=== PATIENT | male | born 1955 | race Two or more races ===

== ENCOUNTER 2024-09-16 17:08 | Inpatient (IN) | payer OTHER, MEDICAID ==
[~2024-09-16] VITALS: Ht 177.8 cm; Wt 98.0 kg
--- NOTE | 2024-09-16 17:46 | ED.PDOC ---
History of Present Illness HPI Comments 68 y/o M, with a Hx of DM, HLD, and HTN, presents with spouse for c/o shortness of breath, dyspnea, and non-productive cough for the past 3-4 days. Patient reports unprovoked onset of symptoms that has been persisting for the past few days and being sent from an urgent care facility for further workup after being seen and evaluated, earlier, today. Patient comments on symptoms exacerbating whenever lying down. Patient states on no recent stress, injuries, sick contact, travel, spoiled food intake, or substance use/exposure. Patient endorses no additional relevant or pertinent past medical, surgical, or family Hx. Patient denies having any chest pain nausea, vomiting, fever, chills, or other associated symptoms or modifiers at this time. Chief Complaint: Shortness of Breath Time Seen by MD: 17:25 Primary Care Provider: [place] Reviewed Notes: Nurses Notes, Medications, Allergies Allergies: Coded Allergies: NO KNOWN ALLERGIES (Unverified , 09/16/24) Information Source: Patient Mode of Arrival: Ambulatory Severity: Moderate Timing: Days Duration: Since onset Prehospital treatment: None Past Medical History PAST MEDICAL HISTORY: DM, High Lipids, HTN Surgical History: Appendectomy, Hernia Repair, Tonsillectomy Family History Family History: Unknown Social History Smoker: Non-Smoker Alcohol: Denies ETOH Use Drugs: Denies Drug Use Lives In: Home Constitutional: denies: chills, diaphoresis, fatigue, fever, malaise, sweats, weakness, others EENTM: denies: blurred vision, double vision, ear bleeding, ear discharge, ear drainage, ear pain, ear ringing, eye pain, eye redness, hearing loss, mouth pain, mouth swelling, nasal discharge, nose bleeding, nose congestion, nose pain, photophobia, tearing, throat pain, throat swelling, voice changes, others Respiratory: reports: cough, shortness of breath, others (dyspnea ); denies: hemoptysis, orthopnea, SOB at rest, SOB with excertion, stridor, wheezing Cardiovascular: denies: chest pain, dizzy spells, diaphoresis, Dyspnea on exertion, edema, irregular heart beat, left arm pain, lightheadedness, palpitations, PND, syncope, others Gastrointestinal: denies: abdomen distended, abdominal pain, blood streaked bowels, constipated, diarrhea, dysphagia, difficulty swallowing, hematemesis, melena, nausea, poor appetite, poor fluid intake, rectal bleeding, rectal pain, vomiting, others Genitourinary: denies: burning, dysuria, flank pain, frequency, hematuria, incontinence, penile discharge, penile sore, pain, testicle pain, testicle swelling, urgency, others Neurological: denies: dizziness, fainting, headache, left sided numbness, left sided weakness, numbness, paresthesia, pre-existing deficit, right sided numbness, right sided weakness, seizure, speech problems, tingling, tremors, weakness, others Musculoskeletal: denies: back pain, gout, joint pain, joint swelling, muscle pain, muscle stiffness, neck pain, others Integumetry: denies: bruises, change in color, change in hair/nails, dryness, laceration, lesions, lumps, rash, wounds, others Allergic/Immunocompromised: denies: Difficulty Healing, Frequent Infections, Hives, Itching, others Hematologic/Lymphatic: denies: anemia, blood clots, easy bleeding, easy bruising, swollen glands, others Endocrine: denies: excessive hunger, excessive sweating, excessive thirst, excessive urination, flushing, intolerance to cold, intolerance to heat, unexplained weight gain, unexplained weight loss, others Psychiatric: denies: anxiety, bipolar disorder, depression, hopeless, panic disorder, schizophrenia, sleepless, suicidal, others All Other Systems: Reviewed and Negative Physical Exam General Appearance: Moderate Distress HEENT: Normal ENT Inspection, Pharynx Normal, TMs Normal Neck: Full Range of Motion, Non-Tender, Normal, Normal Inspection Respiratory: Chest Non-Tender, Decreased Breath Sounds, No Accessory Muscle Use, Rales Cardiovascular: No Edema, No JVD, No Murmur, No Gallop, Normal Peripheral Pulses, Regular Rate/Rhythm Breast Exam: Deferred Gastrointestinal: No Organomegaly, Non Tender, No Pulsatile Mass, Normal Bowel Sounds, Soft Genitalia: Deferred Pelvic: Deferred Rectal: Deferred Extremities: No calf tenderness, Normal capillary refill, Pedal edema Musculoskeletal : Apperance: Normal Neurologic: Alert, patient companion II-XII nml as Tested, Motor Weakness, Normal Affect, Normal Mood, No Sensory Deficits Cerebellar Function: Normal Reflexes: Normal Skin: Dry, Normal Color, Warm Lymphatic: No Adenopathy Was a procedure done? Was a procedure done?: No EKG EKG : Pulse Rate (adult): 86 Walker: Normal Cardiac Rhythm: NSR Block: None Hypertrophy: None ST: Normal Differential Dx Considerations may include: PNA, bronchitis, Covid19, URI, viral syndrome, PE, MA X-Ray, Labs, Meds, VS Vital Signs Date Time Temp Pulse Resp B/P (MAP) Pulse Ox O2 Delivery O2 Flow Rate FiO2 09/16/24 17:46 86 09/16/24 17:29 86 09/16/24 17:25 98.0 98 18 146/54 (84) 90 Lab Test 09/16/24 17:30 Range/Units White Blood Count 9.1 4.4-10.8 10^3/uL Red Blood Count 4.63 4.5-5.90 10^6/uL Hemoglobin 13.4 L 13.5-17.5 g/dL Hematocrit 40.2 L 41.0-53.0 % Mean Corpuscular Volume 86.7 80.0-100.0 fL Mean Corpuscular Hemoglobin 28.9 28.0-32.0 pg Mean Corpuscular Hemoglobin Concent 33.4 32.0-36.0 g/dL Red Cell Distribution Width 16.9 H 11.8-14.3 % Platelet Count 231 140-450 10^3/uL Mean Platelet Volume 8.4 6.9-10.8 fL Neutrophils (%) (Auto) 70.4 37.0-80.0 % Lymphocytes (%) (Auto) 18.1 10.0-50.0 % Monocytes (%) (Auto) 7.5 0.0-12.0 % Eosinophils (%) (Auto) 2.5 0.0-7.0 % Basophils (%) (Auto) 1.5 0.0-2.0 % Neutrophils # (Auto) 6.4 1.6-8.6 10 ^3/uL Lymphocytes # (Auto) 1.6 0.4-5.4 10 ^3/uL Monocytes # (Auto) 0.7 0-1.3 10 ^3/uL Eosinophils # (Auto) 0.2 0-0.8 10 ^3/uL Basophils # (Auto) 0.1 0-0.2 10 ^3/uL Nucleated Red Blood Cells 0.0 % D-Dimer, Quantitative 0.40 0.0-0.49 mg/L FEU Sodium Level 141 136-145 mmol/L Potassium Level 3.9 3.5-5.1 mmol/L Chloride Level 110 H 98-107 mmol/L Carbon Dioxide Level 24 20-31 mmol/L Anion Gap 7 5-15 Blood Urea Nitrogen 18 9-23 mg/dL Creatinine 1.15 0.700-1.30 mg/dL Glomerular Filtration Rate Calc 68 >90 mL/min BUN/Creatinine Ratio 15.7 10.0-20.0 Serum Glucose 104 74-106 mg/dL Calcium Level 10.0 8.7-10.4 mg/dL B-Type Natriuretic Peptide 338.88 0-100 pg/mL PROCEDURE(s): CXR2 - CHEST TWO VIEWS ROUTINE IMPRESSION: 1. Hazy bibasilar opacities may reflect atelectasis or mild pneumonia. Time of 1ST Reevaluation: 17:55 Reevaluation 1ST: Unchanged Patient Education/Counseling: Diagnosis, Treatment, Prognosis Family Education/Counseling: Diagnosis, Treatment, Prognosis Departure 1 Departure Time of Disposition: 19:48 Impression: Primary Impression: Acute on chronic diastolic heart failure Disposition: ADMITTED INPATIENT Admit to: Tele Condition: Fair Critical Care Note Critical Care Time?: Yes (35 min-critical care time only) Stability Stability form required: Yes Unstable for transfer: Telemetry monitoring (Telemetry monitoring required), ED Physician Assesment (Clinical assesment) Heart Score Heart Score: Heart Score Response (Comments) Value History Moderate Suspicious 1 EKG Normal 0 Age >65 2 Risk Factors >3 or Hx ASHD 2 Troponin Normal limit 0 Total 5 I personally scribed for LANCE SALAMANCA MD ([email or web address]) on 09/16/24 at 17:46. Electronically submitted by Vijay Rojas ([email or web address]). I personally scribed for LANCE SALAMANCA MD ([email or web address]) on 09/16/24 at 18:33. Electronically submitted by Vijay Rojas ([email or web address]). LANCE SALAMANCA MD Sep 16, 2024 17:46
[2024-09-16 17:52] LABS: Basophils # (auto) 0.1 10 ^3/uL (0-0.2); Basophils % (auto) 1.5 % (0.0-2.0); Eosinophils # (auto) 0.2 10 ^3/uL (0-0.8); Eosinophils % (auto) 2.5 % (0.0-7.0); Hematocrit 40.2 % (41.0-53.0); Hemoglobin 13.4 g/dL (13.5-17.5); Lymphocytes # (auto) 1.6 10 ^3/uL (0.4-5.4); Lymphocytes % (auto) 18.1 % (10.0-50.0); Mean Corpuscular Hemoglobin 28.9 pg (28.0-32.0); Mean Corpuscular Hgb Conc. 33.4 g/dL (32.0-36.0); Mean Corpuscular Volume 86.7 fL (80.0-100.0); Monocytes # (auto) 0.7 10 ^3/uL (0-1.3); Monocytes % (auto) 7.5 % (0.0-12.0); Neutrophils # (auto) 6.4 10 ^3/uL (1.6-8.6); Neutrophils % (auto) 70.4 % (37.0-80.0); Platelet Count (auto) 231 10^3/uL (140-450); Red Blood Cells 4.63 10^6/uL (4.5-5.90); Red Cell Distribution Width 16.9 % (11.8-14.3); White Blood Cell 9.1 10^3/uL (4.4-10.8)
[2024-09-16 17:54] LABS: Chloride 110 mmol/L (98-107); Potassium 3.9 mmol/L (3.5-5.1); Sodium 141 mmol/L (136-145)
[2024-09-16 17:55] LABS: Anion Gap 7 (5-15); Carbon Dioxide 24 mmol/L (20-31)
--- NOTE | 2024-09-16 17:59 | DVH ---
CHEST RADIOGRAPH Indication:sob Technique: Frontal and lateral view of the chest was obtained Comparison: None FINDINGS: Lines and Tubes: None Lungs: Hazy bibasilar opacities may reflect atelectasis or mild pneumonia. Pleura: No effusion. No pneumothorax. Cardiomediastinal contours: Unremarkable Bones: Right shoulder arthroplasty is partially visualized. IMPRESSION: 1. Hazy bibasilar opacities may reflect atelectasis or mild pneumonia.
[2024-09-16 18:00] LABS: BUN/Creatinine Ratio 15.7 (10.0-20.0); Blood Urea Nitrogen 18 mg/dL (9-23); Glucose 104 mg/dL (74-106)
[2024-09-16 20:34] VITALS: PULSE 77; RESP 20; O2SAT 98
[2024-09-16] MEDS: FUROSEMIDE 40 MG/4 ML VIAL IV ONE (20:41)
[2024-09-16] MEDS ORDERED: MORPHINE SULFATE INJ 2 MG/ml SYRG IV PRN (21:15)
[2024-09-16] MEDS ORDERED: ONDANSETRON HCL 4 MG/2 ML VIAL IV PRN (21:15)
[2024-09-16] MEDS ORDERED: NITROGLYCERIN 0.4 MG SL TAB SL PRN (21:15)
[2024-09-16] MEDS ORDERED: HYDROcodone-ACET 5/325MG TAB PO PRN (21:15)
[2024-09-16] MEDS ORDERED: IPRATROPIUM BROM 0.5 MG/2.5ML INH SOL NEB PRN (22:30)
[2024-09-16] MEDS ORDERED: ALBUTEROL SULF 2.5 MG/0.5ML(0.5%) NEB SOLN NEB PRN (22:30)
--- NOTE | 2024-09-16 22:32 | DVHHPRES ---
History of Present Illness Resident Creating Document: GIOVANA YBARRA RESIDENT History of Present Illness This is a 68 years old male with past medical history of hypertension, hyperlipidemia, DVT, PE, type 2 diabetes mellitus, Hodgkin's lymphoma, CHF presented to the ED with a chief complaint of shortness of breath, and produ ctive cough for last 3 days prior to this admission. The patient state that 3 days ago he started having cough with whitish sputum and shortness of breath mainly on exertion. He first went to the urgent care for these symptoms and they sent the patient to the ER for further evaluation and management of shortness of breath. Patient denies chest pain, dizziness, diaphoresis, abdominal pain, nausea, vomiting, change in bowel and bladder habit, sick contact or any recent traveling. PCP: Dr. Finn Myers Past Medical History Hypertension, hyperlipidemia, DVT, PE, type 2 diabetes mellitus, CHF Past Surgical History Appendectomy, umbilical hernia repair surgery 2 times, hand surgery Family History None Smoke: No ALCOHOL: none Drugs: None Lives: with Family Review of Systems Constitutional: No: Fever, Chills, Sweats, Weakness, Malaise, Other Eyes: No: Pain, Vision change, Conjunctivae inflammation, Eyelid inflammation, Other, Redness Respiratory: Cough, Shortness of breath, SOB with excertion, Sputum Cardiovascular: No: Chest Pain, Palpitations, Orthopnea, Paroxysmal Noc. Dyspnea, Edema, Lt Headedness, Other Gastrointestinal: No: Nausea, Vomiting, Abdominal Pain, Diarrhea, Constipation, Melena, Hematochezia, Other Genitourinary: No Dysuria, No Frequency, No Incontinence, No Hematuria, No Retention, No Other Musculoskeletal: No: other, neck pain, shoulder pain, arm pain, back pain, hand pain, leg pain, foot pain Skin: No: Rash, Lesions, Jaundice, Bruising, Other Neurological: No: Weakness, Numbness, Incoordination, Change in speech, Confusion, Seizures, Other Allergies: Coded Allergies: NO KNOWN ALLERGIES (Unverified , 09/16/24) Medications Current Medications Medications Dose Ordered Sig/Ginger Route Start Time Stop Time Status Last Admin Dose Admin Sodium Chloride 10 ml Q8HR IV 09/16/24 22:00 Acetaminophen/ Hydrocodone Bitart 1 tab Q4HP PRN PO 09/16/24 21:15 Ondansetron HCl 4 mg Q4HP PRN IV 09/16/24 21:15 Nitroglycerin 0.4 mg Q5MINP PRN SL 09/16/24 21:15 Morphine Sulfate 2 mg Q30M PRN IV 09/16/24 21:15 Albuterol 2.5 mg Q4HPRN PRN NEB 09/16/24 22:30 Ipratropium [place] 0.5 mg Q4HPRN PRN NEB 09/16/24 22:30 Warfarin Sodium RX PROTOCOL PER PHARMACY PO 09/16/24 22:30 UNV Exam Vital Signs Vital Signs Date Time Temp Pulse Resp B/P (MAP) Pulse Ox O2 Delivery O2 Flow Rate FiO2 09/16/24 20:41 138/65 09/16/24 20:34 77 20 98 Room Air* 0 21 09/16/24 20:31 97.7 97.7 Exam Physical examination: General Appearance: Alert, Oriented X3, Cooperative, No acute distress HEENT: Atraumatic, PERRLA, EOMI, Mucous membrane moist/pink Respiratory: Clear to auscultation, Normal air movement Cardiovascular: Regular rate, Normal S1, Normal S2, No murmurs, no chest wall tenderness Abdominal: Normal bowel sounds, Soft, No tenderness, No hepatospenomegaly, No masses Extremities: No clubbing, No cyanosis, No edema, Normal pulses, No tenderness/swelling Skin: No rashes, No breakdown, No significant lesion Neuro: Normal gait, Normal speech, Strength at 5/5 X4 ext, Normal tone, Sensation intact, grossly intact cranial nerves Psych/Mental Status: Mental status NL, Mood NL Labs/Xrays Labs Test 09/16/24 17:30 Range/Units White Blood Count 9.1 4.4-10.8 10^3/uL Red Blood Count 4.63 4.5-5.90 10^6/uL Hemoglobin 13.4 L 13.5-17.5 g/dL Hematocrit 40.2 L 41.0-53.0 % Mean Corpuscular Volume 86.7 80.0-100.0 fL Mean Corpuscular Hemoglobin 28.9 28.0-32.0 pg Mean Corpuscular Hemoglobin Concent 33.4 32.0-36.0 g/dL Red Cell Distribution Width 16.9 H 11.8-14.3 % Platelet Count 231 140-450 10^3/uL Mean Platelet Volume 8.4 6.9-10.8 fL Neutrophils (%) (Auto) 70.4 37.0-80.0 % Lymphocytes (%) (Auto) 18.1 10.0-50.0 % Monocytes (%) (Auto) 7.5 0.0-12.0 % Eosinophils (%) (Auto) 2.5 0.0-7.0 % Basophils (%) (Auto) 1.5 0.0-2.0 % Neutrophils # (Auto) 6.4 1.6-8.6 10 ^3/uL Lymphocytes # (Auto) 1.6 0.4-5.4 10 ^3/uL Monocytes # (Auto) 0.7 0-1.3 10 ^3/uL Eosinophils # (Auto) 0.2 0-0.8 10 ^3/uL Basophils # (Auto) 0.1 0-0.2 10 ^3/uL Nucleated Red Blood Cells 0.0 % D-Dimer, Quantitative 0.40 0.0-0.49 mg/L FEU Sodium Level 141 136-145 mmol/L Potassium Level 3.9 3.5-5.1 mmol/L Chloride Level 110 H 98-107 mmol/L Carbon Dioxide Level 24 20-31 mmol/L Anion Gap 7 5-15 Blood Urea Nitrogen 18 9-23 mg/dL Creatinine 1.15 0.700-1.30 mg/dL Glomerular Filtration Rate Calc 68 >90 mL/min BUN/Creatinine Ratio 15.7 10.0-20.0 Serum Glucose 104 74-106 mg/dL Calcium Level 10.0 8.7-10.4 mg/dL B-Type Natriuretic Peptide 338.88 0-100 pg/mL Assessment/Plan Assessment/Plan Assessment and plan: # Shortness of breath, cough with sputum rule out Gram-positive versus Gram- negative pneumonia/ CHF - patient is on room air - chest x-ray revealed hazy bibasilar opacities may reflect atelectasis or mild pneumonia. - BNP is elevated - D- dimer is normal - Ordered echo # Type 2 diabetes mellitus, hemoglobin A1c 6.1 - Mild sliding scale of insulin # History of DVT and PE and on warfarin - Continue warfarin as per pharmacy and monitor the INR. Goal of care discussed with the patient for more than 17 minutes full code Plan of treatment discussed with Dr. Hahn Plan discussed with: Patient, Other My Orders Orders - GIOVANA YBARRA RESIDENT Procedure Category Date Status Time Admit ADMIT 09/16/24 Transmitted 21:07 Code Status CODE 09/16/24 Transmitted 21:07 Sodium Chloride Lock PHA 09/16/24 In Process (Saline Lock Ns) 22:00 Oxygen Per Hour RT 09/16/24 Transmitted 21:07 Hydrocodone-Acet PHA 09/16/24 In Process 5/325mg Tab ([place] 21:15 Ondansetron Hcl PHA 09/16/24 In Process (Zofran) 21:15 Fall Risk Precautions [facility] 09/16/[address] 21:07 Complete Blood Count LAB 09/17/24 Verified 04:00 Comprehensive LAB 09/17/24 Verified Metabolic Panel 04:00 Cardiac DIET 09/17/24 Transmitted Diet-2gna,Lofat,Lochol Breakfast Pt Request For Service PT 09/16/24 Logged 21:07 Nitroglycerin PHA 09/16/24 In Process Sublingual (Ntrostat 21:15 Morphine Sulfate PHA 09/16/24 In Process Injection 21:15 Oxygen By Nasal RT 09/16/24 Transmitted Cannula 21:07 Stat Ekg For Chest [facility] 09/16/24 In Process Pain 21:07 Notify Of Changes [facility] 09/16/24 In Process From Base 21:07 Assistant Office Manager For [employer] 09/16/24 In Process 24 Hours 21:07 Emergency Dysrhythmia [facility] 09/16/24 In Process Protocol 21:07 Rhythm Strips Once [facility] 09/16/24 In Process Every Shift 21:07 Urinalysis LAB 09/16/24 Uncollected 22:23 Hemoglobin A1c LAB 09/16/24 Logged 22:23 Vitamin B12 LAB 09/16/24 Logged 22:23 Thyroid Stimulating LAB 09/16/24 Logged Hormone 22:23 Vitamin D, 25-Hydroxy LAB 09/16/24 Logged 22:23 Albuterol Medneb PHA 09/16/24 In Process (Ventolin Medneb) 22:30 Ipratropium Medneb PHA 09/16/24 In Process (Atrovent Medneb) 22:30 Warfarin Per Rx PHA 09/16/24 Logged Protocol (Coumadin 22:30 Date of Service: Sep 16, 2024 Billing Provider: BRITTNEY HAHN MD Common Visit Codes: 39956-NBYRIJA INP/OBS CARE (HIGH) Secondary Visit Codes: 58918-EPHETQUA CARE PLAN 30 MINUTES GIOVANA YBARRA Sep 16, 2024 22:32 BRITTNEY HAHN MD Sep 17, 2024 18:25
[2024-09-16] MEDS: SODIUM CHLOR 0.9% PF (SALINE LOCK) 10ML VIAL/SYR IV SCH (22:42)
[2024-09-16 23:00] VITALS: BP 108/51; PULSE 75; RESP 16; TEMP 97.5; O2SAT 95
[2024-09-16] MEDS ORDERED: DEXTROSE (50%) 50ML SYRG IV PRN (23:45)
[2024-09-17] VITALS (11 sets, daily range): BP systolic 105–129; BP diastolic 52–70; PULSE 64–85; RESP 17–20; TEMP 97.2–98.1; O2SAT 91–97
[2024-09-17] MEDS ORDERED: MECL1TAB42 PO (02:32)
[2024-09-17] MEDS ORDERED: WARF-112 PO (02:32)
[2024-09-17] MEDS ORDERED: METF-370 PO (02:32)
[2024-09-17] MEDS ORDERED: BENZ100C97 PO (02:32)
[2024-09-17] MEDS ORDERED: WARF-113 PO (02:32)
[2024-09-17] MEDS ORDERED: AMLO1TAB22 PO (02:32)
[2024-09-17] MEDS ORDERED: ATOR-507 PO (02:32)
[2024-09-17 06:15] LABS: Basophils # (auto) 0.1 10 ^3/uL (0-0.2); Basophils % (auto) 1.2 % (0.0-2.0); Eosinophils # (auto) 0.2 10 ^3/uL (0-0.8); Eosinophils % (auto) 2.9 % (0.0-7.0); Hematocrit 36.8 % (41.0-53.0); Hemoglobin 12.4 g/dL (13.5-17.5); INR 2.27 (0.9-1.15); Lymphocytes # (auto) 1.1 10 ^3/uL (0.4-5.4); Lymphocytes % (auto) 13.7 % (10.0-50.0); Mean Corpuscular Hemoglobin 28.9 pg (28.0-32.0); Mean Corpuscular Hgb Conc. 33.7 g/dL (32.0-36.0); Mean Corpuscular Volume 85.7 fL (80.0-100.0); Monocytes # (auto) 0.8 10 ^3/uL (0-1.3); Neutrophils # (auto) 5.6 10 ^3/uL (1.6-8.6); Neutrophils % (auto) 72.2 % (37.0-80.0); Platelet Count (auto) 204 10^3/uL (140-450); Prothrombin Time 22.6 sec (9.3-11.8); Red Blood Cells 4.29 10^6/uL (4.5-5.90); Red Cell Distribution Width 16.3 % (11.8-14.3); White Blood Cell 7.7 10^3/uL (4.4-10.8)
[2024-09-17] MEDS: ACCU-CHEK COMFORT CURVE STRIP VI SCH (06:20)
[2024-09-17] MEDS: InsuLIN REG 1unit/0.01ml Soln (100units/ml) SC SCH (06:20)
[2024-09-17 06:28] LABS: Alanine Aminotransferase 13 U/L (7-40); Alkaline Phosphatase 88 U/L (46-116); Anion Gap 6 (5-15); BUN/Creatinine Ratio 16.2 (10.0-20.0); Blood Urea Nitrogen 18 mg/dL (9-23); Calcium 9.5 mg/dL (8.7-10.4); Carbon Dioxide 27 mmol/L (20-31); Chloride 108 mmol/L (98-107); Glucose 116 mg/dL (74-106); Potassium 3.6 mmol/L (3.5-5.1); Sodium 141 mmol/L (136-145)
[2024-09-17 06:29] LABS: Albumin 4.2 g/dL (3.2-4.8); Aspartate Aminotransferase 12 U/L (13-40); Bilirubin, Total 2.4 mg/dL (0.2-1.0); Total Protein 6.6 g/dL (5.7-8.2)
--- NOTE | 2024-09-17 08:01 | ECG ---
[facility] Test Date: 2024-09-16 Test Time: 17:29:45 Pat Name: ANTOLIN JULES Department: ER Room: 0216 Gender: M Patient Services Coordinator: SHA : 1955 Requested By: LANCE SALAMANCA Order Number: [id number] Reading MD: Measurements Intervals [place] Rate: 86 P: 41 GA: 181 QRS: 111 QRSD: 159 T: 7 QT: 461 QTc: 552 Interpretive Statements Sinus rhythm Nonspecific intraventricular conduction delay Consider anterior infarct Baseline wander in lead(s) V4 Please click the below link to view image of tracing.
[2024-09-17 09:05] LABS: COVID19 ANTIGEN SOFIA FIA NEGATIVE (NEGATIVE)
[2024-09-17 09:06] LABS: Rapid Influenza A Negative (Negative)
[2024-09-17 09:09] LABS: Free T3 3.63 pg/mL (2.3-4.2); Free T4 (Free Thyroxine) 1.19 ng/dL (0.89-1.76)
[2024-09-17 09:10] LABS: Rapid Influenza B Positive (Negative)
[2024-09-17] MEDS: ERGOCALCIFEROL 50,000 UNIT(1.25MG) CAP PO SCH (10:54)
[2024-09-17 11:14] LABS: Urine Bacteria None Seen /hpf (None Seen)
[2024-09-17 11:38] LABS: Urine Blood Negative /uL (Negative); Urine Clarity Clear (Clear); Urine Color Yellow (Yellow); Urine Protein, UAD Negative (Negative); Urine Urobilinogen Normal (Negative); Urine WBC 3 /hpf (0 - 3)
[2024-09-17] MEDS: DOXYCYCLINE 100MG/250ML 250 ML IV SCH (12:30)
[2024-09-17] MEDS: OSELTAMIVIR 75 MG CAP PO ONE (12:30)
[2024-09-17] MEDS: DOXYCYCLINE 100MG/250ML 250 ML IV ONE (12:30)
--- NOTE | 2024-09-17 14:19 | DVHSR ---
APPROVED REPORT EXAM: Two-dimensional and M-mode echocardiogram with Doppler and color Doppler. Blood Pressure: 123/68 mmHg INDICATION Dyspnea RISK FACTORS Height: 5'10", Weight: 213 DIMENSIONS LVDd6.1 (3.8-5.7cm)LA (2D)4.6 (1.9-4.0cm)Aortic Root3.4 (2.0-3.7cm) LVDs5.1 (2.5-4.0cm)LA (MM) (1.9-4.0cm)Aortic Cusp Exc1.7 (1.5-2.0cm) EF (%) 35.0 (55-70%)Rt. Atrium3.4 (1.9-4.0cm)Asc. Aorta cm IVSd0.9 (0.7-1.1cm)RV (D)4.0 (1.8-2.4cm) PWd1.0 (0.7-1.1cm) Mitral Valve MitralMitral Stenosis E wave1.29m/sMV Mean GR.mmHg A wave0.87m/sMV Peak GR.mmHg E/A ratio1.52D MVAcm2 DECEL [id number] 1/2 Timems Aortic Valve Aortic ValveAortic Stenosis V10.81m/Donald Mean GR.4mmHg V21.25m/Donald Peak GR.6mmHg LVOT Diameter2.3 (1.8-2.4cm)Doppler AVA2.69cm2 Pulmonic Valve V20.96m/s Tricuspid Valve TR Velocity3.28m/s [id number] Other Information Quality : Technically LimitedRhythm : Technically limited study due to body habitus. Conclusion Moderately severely reduced left ventricular systolic function estimated ejection fraction of 35%. I n a global fashion. There is a grade diastolic dysfunction. [id number] reduced left ventricular systolic function. Moderately elevated right ventricular systolic pressure 50 mm of mercury. Moderately dilated left and right atria. There is severe torrential mitral valve regurgitation that is posteriorly directed. There is mild tricuspid valve regurgitation Aortic valve is mildly thickened and sclerotic. The pulmonary valve is grossly normal. No pericardial effusion.
--- NOTE | 2024-09-17 16:04 | DVHPNRES ---
Progress Note Date Seen: Sep 17, 2024 Resident Creating Document: NITA WOLFF RESIDENT Medical Necessity Reason Pt with a Central, PICC or Fol: No Subjective Review of Systems Patient is 68 years old male with past medical history of congestive heart failure, hypertension, diabetes mellitus type 2, hyperlipidemia, DVT, pulmonary embolism, Hodgkin's lymphoma came with a complaint of short of breath and cough for 3 days. As per patient patient has been coughing for last 3 days making yellowish sputum. Patient also reported having short of breath for last 3 days. Per patient patient feels like his chest has been congested and he heard wheezing. Patient went to urgent care and urgent care recommended him to go to the ER. Denied fever, palpitation, dysuria, constipation, diarrhea, dizziness/vertigo/dysarthria. Initial lab workup revealed serum bilirubin 2.4, HGB A1c 6.1, BNP 338, TSH 5.98, COVID-19 negative, positive for influenza type B, chest x-ray-Hazy bibasilar opacities may reflect atelectasis or mild pneumonia. PMH-congestive heart failure, hypertension, diabetes mellitus type 2, hyperlipidemia, DVT, pulmonary embolism, Hodgkin's lymphoma PSH- Appendectomy, umbilical hernia repair surgery 2 times, hand surgery Allergy- NKDA Personal History/ Social History- Lasix smoking/ alcoholism/drug abuse Patient was seen today at the bedside. Patient better today Cardiovascular- deny palpitation Gastrointestinal- denies any rectal bleeding, nausea or vomiting Musculoskeletal-denies acute joint swelling or tenderness or redness Neurological- denies acute dysarthria, dysphagia, change in vision Psychiatry- denies depression or SI or HI Skin- denies acute rash or purpura Patient was seen today for clinical evaluation. Less than chart reviewed. Patient reports feeling better today. History of positive for influenza type B, started Tamiflu 75 mg p.o. b.i.d..chest x-ray-Hazy bibasilar opacities may reflect atelectasis or mild pneumonia. Patient was started on doxycycline 100 mg IV b.i.d.. Echo 2D revealedModerately severely reduced left ventricular systolic function estimated ejection fraction of 35%. In a global fashion. There is a grade diastolic dysfunction. Hgrv-bo-[id number] reduced left ventricular systolic function. Moderately elevated right ventricular systolic pressure 50 mm of mercury. Moderately dilated left and right atria. Ordered cardiology consult for further evaluation and care. Objective vital signs Vital Sign Date Time Temp Pulse Resp B/P (MAP) Pulse Ox O2 Delivery O2 Flow Rate FiO2 09/17/24 13:00 98.0 77 17 105/59 (74) 97 98.0 09/17/24 08:55 Room Air* 0 21 Total Intake and Output 09/16/24 09/16/24 09/17/24 15:00 23:00 07:00 Intake Total 345 ml Output Total 900 ml Balance -555 ml medications Current Medications Medications Dose Ordered Sig/Ginger Route Start Time Stop Time Status Last Admin Dose Admin Sodium Chloride 10 ml Q8HR IV 09/16/24 22:00 09/17/24 14:00 10 ML Acetaminophen/ Hydrocodone Bitart 1 tab Q4HP PRN PO 09/16/24 21:15 Ondansetron HCl 4 mg Q4HP PRN IV 09/16/24 21:15 Nitroglycerin 0.4 mg Q5MINP PRN SL 09/16/24 21:15 Morphine Sulfate 2 mg Q30M PRN IV 09/16/24 21:15 Albuterol 2.5 mg Q4HPRN PRN NEB 09/16/24 22:30 Ipratropium [place] 0.5 mg Q4HPRN PRN NEB 09/16/24 22:30 Warfarin Sodium RX PROTOCOL PER PHARMACY PO 09/16/24 22:30 Ergocalciferol 50,000 unit Q7D PO 09/17/24 10:00 09/17/24 10:54 50,000 UNIT Diagnostic Test (Pha) 1 strip ACHS 09/17/24 07:00 09/17/24 11:30 1 STRIP Insulin Human Regular ACHS SC 09/17/24 07:00 09/17/24 11:30 3 UNITS Dextrose 50 ml UD PRN IV 09/16/24 23:45 Oseltamivir Phosphate 75 mg Q12HR PO 09/17/24 22:00 09/22/24 21:59 Doxycycline Hyclate 250 ml @ 125 mls/hr Q12H IV 09/17/24 12:30 Examination General examination- awake, alert, oriented, conversant HEENT- PEERLA, no acute nasal discharge Cardiovascular- S1-S2 audible, rate and rhythm regular, no murmur Respiratory- bilateral lung crackles+ Gastrointestinal-nontender, bowel sound+. Nondistended Musculoskeletal-no acute joint swelling or tenderness or redness# Lower extremity- no leg edema Neurological- cranial nerves intact, no acute dysarthria or dysphagia Psychiatry- denies depression or SI or HI Skin- no rash or purpura laboratory and microbiology Laboratory Tests 09/17/24 05:35 Test 09/17/24 05:35 Range/Units Serum Glucose 116 H 74-106 mg/dL Problem List/Assessment/Plan Problem List/Assessment/Plan # acute hypoxic respiratory failure likely due to acute on chronic HPrEF, LVEF 35% -Echo 2D revealedModerately severely reduced left ventricular systolic function estimated ejection fraction of 35%. In a global fashion. There is a grade diastolic dysfunction. Ksox-kh-pzcuhtscyq reduced left ventricular systolic function. Moderately elevated right ventricular systolic pressure 50 mm of mercury. Moderately dilated left and right atria. Ordered cardiology consult for further evaluation and care. -ordered Lasix 20 mg IV daily -started carvedilol 3.125 mg p.o. b.i.d. -started Jardiance 10 mg p.o. daily -plan is to continue GDMT based on tolerance of the medication and we will monitor blood pressure to continue with GDM T and add other medications -ordered cardiology consult for further evaluation and care -ordered troponin I #Acute on chronic HPrEF, LVEF 35% -Echo 2D revealedModerately severely reduced left ventricular systolic function estimated ejection fraction of 35%. In a global fashion. There is a grade diastolic dysfunction. Koaj-mq-ozzurintxc reduced left ventricular systolic function. Moderately elevated right ventricular systolic pressure 50 mm of mercury. Moderately dilated left and right atria. Ordered cardiology consult for further evaluation and care. -ordered Lasix 20 mg IV daily -started carvedilol 3.125 mg p.o. b.i.d. -started Jardiance 10 mg p.o. daily -plan is to continue GDMT based on tolerance of the medication and we will monitor blood pressure to continue with GDM T and add other medications -ordered cardiology consult for further evaluation and care -ordered troponin I #Suspected pneumonia Gram-positive versus Gram-negative -CXR- Hazy bibasilar opacities may reflect atelectasis or mild pneumonia. -continue doxycycline 100 mg IV b.i.d. #Influenza type B -continue Tamiflu 75 mg p.o. b.i.d. -on isolation and contact precaution #History of DVT, PE -continue with warfarin as per pharmacy protocol #Hypertension --ordered Lasix 20 mg IV daily -started carvedilol 3.125 mg p.o. b.i.d. -started Jardiance 10 mg p.o. daily #Hiabetes mellitus type 2 -HGB A1c 6.1 -continue insulin sliding scale mild -monitor blood sugar level #Hyperlipidemia -continue atorvastatin 40 mg q.h.s. # hyperbilirubinemia -monitor liver function test # elevated TSH -ordered FT3, FT4 # history of Hodgkin's lymphoma -follow up outpatient Goals of care/advance care planning; FULL CODE; discussed with the patient PUD prophylaxis: DVT prophylaxis: On warfarin Plan discussed with Dr. Lopez,,, nursing staff, patient Total time spent on patient evaluation, chart review, assessment and plan, discussion discussion >20 minutes Plan discussed with: Patient Plan discussed with: Patient, Other (RN) My Orders My Orders Orders - NITA WOLFF Procedure Category Date Status Time Oseltamivir 75mg PHA 09/17/24 In Process Capsule (Tamiflu 75mg 22:00 Doxycycline PHA 09/17/24 In Process 100mg/250ml 12:30 Date of Service: Sep 17, 2024 Billing Provider: BILLIE LOPEZ MD Common Visit Codes: [id number] INP/OBS CARE(HIGH) Secondary Visit Codes: [id number] CARE PLAN 30 MINUTES NITA WOLFF Sep 17, 2024 16:04 BILLIE LOPEZ MD Sep 17, 2024 20:53
[2024-09-17] MEDS: CARVEDILOL 3.125 MG TAB PO ONE (16:15)
[2024-09-17] MEDS: WARFARIN SODIUM 2 MG TAB PO ONE (17:00)
[2024-09-17 18:23] LABS: INR 2.12 (0.9-1.15); Prothrombin Time 21.3 sec (9.3-11.8)
[2024-09-17 19:49] LABS: Magnesium 2.1 mg/dL (1.6-2.6)
--- NOTE | 2024-09-17 19:59 | DVHINCON2 ---
Date of service: Sep 17, 2024 Referring Physician Dawit Reason for Consultation CHF History of Present Illness This is a 68 year old male with a PMH of DM, High Lipids, HTN who was brought in by EMS with complaints of shortness of breath and non-productive cough for the past 3 days. The patient state that 3 days ago he started having cough with whitish sputum and shortness of breath mainly on exertion. He first went to the urgent care for these symptoms and they sent the patient to the ER for further evaluation and management of shortness of breath. EKG is NSR at 86. Chest x-ray shows hazy bibasilar opacities may reflect atelectasis or mild pneumonia. UA is negative for infection. Influenza B positive. Influenza A and Covid are negative. Patient was admitted to the hospital. I am asked to consult on this patient. Family History: Diabetes mellitus G8 FATHER Allergies: Coded Allergies: NO KNOWN ALLERGIES (Unverified , 09/16/24) Home Meds Reported Medications Warfarin Sodium (Warfarin Sodium) 6 Mg Tab, 6 MG PO 2XW for 30 Days, MG 09/17/24 Warfarin Sodium (Warfarin Sodium) 4 Mg Tab, 1 TAB PO DAILY for 5 Days, #5 TAB 1 Refill 09/17/24 Meclizine HCl (Meclizine 25) 25 Mg Tab, 25 MG PO DAILY, TAB 09/17/24 Benzonatate (Benzonatate) 100 Mg Cap, 100 MG PO DAILY, CAP 09/17/24 Atorvastatin Calcium (Lipitor) 40 Mg Tab, 1 TAB PO DAILY, #30 TAB 5 Refills 09/17/24 Amlodipine Besylate (Amlodipine Besylate) 5 Mg Tab, 5 MG PO DAILY for 30 Days, MG 09/17/24 Metformin Hydrochloride (Metformin Hcl) 500 Mg Tab, 1000 MG PO DAILY for 30 Days, MG 09/17/24 Current Medications Current Medications Medications (Trade) Dose Ordered Sig/Ginger Route PRN Reason Start Time Stop Time Status Last Admin Sodium Chloride (Saline Lock Ns) 10 ml Q8HR IV 09/16/24 22:00 09/17/24 14:00 Acetaminophen/ Hydrocodone Bitart ([place] 5/325MG Tab) 1 tab Q4HP PRN PO MODERATE PAIN (4-6 PAIN SCALE) 09/16/24 21:15 Ondansetron HCl (Zofran) 4 mg Q4HP PRN IV NAUSEA / VOMITING 09/16/24 21:15 Nitroglycerin (Ntrostat Sublingual) 0.4 mg Q5MINP PRN SL FOR CHEST PAIN 09/16/24 21:15 Morphine Sulfate 2 mg Q30M PRN IV FOR CHEST PAIN 09/16/24 21:15 Albuterol (Ventolin Medneb) 2.5 mg Q4HPRN PRN NEB SHORTNESS OF BREATH 09/16/24 22:30 Ipratropium [place] (Atrovent Medneb) 0.5 mg Q4HPRN PRN NEB SHORTNESS OF BREATH 09/16/24 22:30 Warfarin Sodium (Coumadin Per Rx Protocol) RX PROTOCOL PER PHARMACY PO 09/16/24 22:30 Ergocalciferol (Vitamin D 50,000 Unit) 50,000 unit Q7D PO 09/17/24 10:00 09/17/24 10:54 Diagnostic Test (Pha) (Accu-Chek Comfort Curve T) 1 strip ACHS 09/17/24 07:00 09/17/24 17:00 Insulin Human Regular (InsuLIN R) ACHS SC 09/17/24 07:00 09/17/24 11:30 Dextrose 50 ml UD PRN IV Blood Sugar LESS THAN 60 09/16/24 23:45 Oseltamivir Phosphate (Tamiflu 75MG Capsule) 75 mg Q12HR PO 09/17/24 22:00 09/22/24 21:59 Doxycycline Hyclate 250 ml @ 125 mls/hr Q12H IV 09/17/24 12:30 Furosemide (Lasix Injection) 20 mg DAILY IV 09/18/24 10:00 Carvedilol (Coreg Tablet) 3.125 mg Q12HR PO 09/17/24 22:00 Empaglifozin (Jardiance) 10 mg DAILY PO 09/18/24 10:00 Atorvastatin Calcium (Lipitor) 40 mg HS PO 09/17/24 22:00 Review of Systems Constitutional: denies: chills, diaphoresis, fatigue, fever, malaise, sweats, weakness, others EENTM: denies: blurred vision, double vision, ear bleeding, ear discharge, ear drainage, ear pain, ear ringing, eye pain, eye redness, hearing loss, mouth pain, mouth swelling, nasal discharge, nose bleeding, nose congestion, nose pain, photophobia, tearing, throat pain, throat swelling, voice changes, others Respiratory: reports: cough, shortness of breath, others (dyspnea ); denies: hemoptysis, orthopnea, SOB at rest, SOB with excertion, stridor, wheezing Cardiovascular: denies: chest pain, dizzy spells, diaphoresis, Dyspnea on exertion, edema, irregular heart beat, left arm pain, lightheadedness, palpitations, PND, syncope, others Gastrointestinal: denies: abdomen distended, abdominal pain, blood streaked bowels, constipated, diarrhea, dysphagia, difficulty swallowing, hematemesis, melena, nausea, poor appetite, poor fluid intake, rectal bleeding, rectal pain, vomiting, others Genitourinary: denies: burning, dysuria, flank pain, frequency, hematuria, incontinence, penile discharge, penile sore, pain, testicle pain, testicle swe lling, urgency, others Neurological: denies: dizziness, fainting, headache, left sided numbness, left sided weakness, numbness, paresthesia, pre-existing deficit, right sided numbness, right sided weakness, seizure, speech problems, tingling, tremors, weakness, others Musculoskeletal: denies: back pain, gout, joint pain, joint swelling, muscle pain, muscle stiffness, neck pain, others Integumetry: denies: bruises, change in color, change in hair/nails, dryness, laceration, lesions, lumps, rash, wounds, others Allergic/Immunocompromised: denies: Difficulty Healing, Frequent Infections, Hives, Itching, others Hematologic/Lymphatic: denies: anemia, blood clots, easy bleeding, easy bruising, swollen glands, others Endocrine: denies: excessive hunger, excessive sweating, excessive thirst, excessive urination, flushing, intolerance to cold, intolerance to heat, unexplained weight gain, unexplained weight loss, others Psychiatric: denies: anxiety, bipolar disorder, depression, hopeless, panic disorder, schizophrenia, sleepless, suicidal, others All Other Systems: Reviewed and Negative Vital Signs Vital Signs Date Time Temp Pulse Resp B/P (MAP) Pulse Ox O2 Delivery O2 Flow Rate FiO2 09/17/24 17:00 97.5 73 19 129/70 (89) 91 97.5 09/17/24 10:00 Room Air* 0 21 Physical Exam GENERAL: Awake, alert, oriented. LUNGS: Diminished breath sounds. CARDIOVASCULAR: Heart sounds are good. ABDOMEN: Soft. Labs/Diagnostic Data Labs Test 09/17/24 18:15 09/17/24 18:10 09/17/24 16:55 09/17/24 11:12 Range/Units Troponin I High Sensitivity 9 </=54 ng/L POC Glucose 115 H 70-106 mg/dl Prothrombin Time 21.3 H 9.3-11.8 sec Prothrombin Time INR 2.12 H 0.9-1.15 Urine Color Yellow Yellow Urine Clarity Clear Clear Urine pH 6.0 5.0-9.0 Urine Specific [place] 1.020 1.001-1.035 Urine Protein Negative Negative Urine Ketones Negative Negative Urine Blood Negative Negative /uL Urine Nitrite Negative Negative Urine Bilirubin Negative Negative Urine Urobilinogen Normal Negative mg/dL Urine Leukocyte Esterase 1+ Negative /uL Urine RBC 1 0 - 3 /hpf Urine WBC 3 0 - 3 /hpf Urine Squamous Epithelial Cells Few <5 /hpf Urine Bacteria None seen None Seen /hpf Urine Glucose Trace Normal mg/dL Test 09/17/24 08:00 09/17/24 05:35 09/17/24 05:25 09/16/24 17:30 Range/Units Influenza Type A Antigen Negative Negative Influenza Type B Antigen Positive Negative SARS-CoV-2 Antigen (Rapid) Negative NEGATIVE White Blood Count 7.7 4.4-10.8 10^3/uL Red Blood Count 4.29 L 4.5-5.90 10^6/uL Hemoglobin 12.4 L 13.5-17.5 g/dL Hematocrit 36.8 L 41.0-53.0 % Mean Corpuscular Volume 85.7 80.0-100.0 fL Mean Corpuscular Hemoglobin 28.9 28.0-32.0 pg Mean Corpuscular Hemoglobin Concent 33.7 32.0-36.0 g/dL Red Cell Distribution Width 16.3 H 11.8-14.3 % Platelet Count 204 140-450 10^3/uL Mean Platelet Volume 8.6 6.9-10.8 fL Neutrophils (%) (Auto) 72.2 37.0-80.0 % Lymphocytes (%) (Auto) 13.7 10.0-50.0 % Monocytes (%) (Auto) 10.0 0.0-12.0 % Eosinophils (%) (Auto) 2.9 0.0-7.0 % Basophils (%) (Auto) 1.2 0.0-2.0 % Neutrophils # (Auto) 5.6 1.6-8.6 10 ^3/uL Lymphocytes # (Auto) 1.1 0.4-5.4 10 ^3/uL Monocytes # (Auto) 0.8 0-1.3 10 ^3/uL Eosinophils # (Auto) 0.2 0-0.8 10 ^3/uL Basophils # (Auto) 0.1 0-0.2 10 ^3/uL Nucleated Red Blood Cells 0.0 % Sodium Level 141 136-145 mmol/L Potassium Level 3.6 3.5-5.1 mmol/L Chloride Level 108 H 98-107 mmol/L Carbon Dioxide Level 27 20-31 mmol/L Anion Gap 6 5-15 Blood Urea Nitrogen 18 9-23 mg/dL Creatinine 1.11 0.700-1.30 mg/dL Glomerular Filtration Rate Calc 71 >90 mL/min BUN/Creatinine Ratio 16.2 10.0-20.0 Serum Glucose 116 H 74-106 mg/dL Calcium Level 9.5 8.7-10.4 mg/dL Total Bilirubin 2.4 H 0.2-1.0 mg/dL Aspartate Amino Transferase (AST) 12 L 13-40 U/L Alanine Aminotransferase (ALT) 13 7-40 U/L Alkaline Phosphatase 88 46-116 U/L Total Protein 6.6 5.7-8.2 g/dL Albumin 4.2 3.2-4.8 g/dL Free Thyroxine (T4) Calculated 1.19 0.89-1.76 ng/dL Free Triiodothyronine (T3) pg/mL 3.63 2.3-4.2 pg/mL D-Dimer, Quantitative 0.40 0.0-0.49 mg/L FEU Hemoglobin A1c 6.1 H <5.7 % A1C B-Type Natriuretic Peptide 338.88 0-100 pg/mL Vitamin B12 Level 318 211-911 pg/mL Vitamin D 25-Hydroxy 32.8 30.0-100 ng/mL Thyroid Stimulating Hormone (TSH) 5.92 H 0.55-4.78 uIU/mL Assessment Acute hypoxic respiratory failure. Acute on chronic HPrEF, LVEF 35%. Influenza type B. History of DVT and PE. Hypertension. Diabetes mellitus type 2. Hyperlipidemia. Hyperbilirubinemia. Elevated TSH. History of Hodgkin's lymphoma. Plan/Recommendation I agree with your ongoing assessment and care of plan. Echocardiogram. Morphine and [place] for pain management. Lipitor. Coreg. Oral antibiotics as ordered. Jardiance. Additional plan as per the hospital course. A total of 45 minutes was spent reviewing the patient record, examining the patient, making a diagnostic and therapeutic plan, discussing this plan with medical personnel, following up on diagnostic studies and following the patient for clinical stability excluding any and all procedures. At least 50% of this time was spent in direct, [id number] contact. Plan discussed with: Patient YANY STUBBS MD Sep 17, 2024 19:59
[2024-09-17] MEDS: OSELTAMIVIR 75 MG CAP PO SCH (22:25)
[2024-09-17] MEDS: ATORVASTATIN 20 MG TAB PO SCH (22:25)
[2024-09-17] MEDS: CARVEDILOL 3.125 MG TAB PO SCH (22:26)
[2024-09-18 01:00] VITALS: BP 113/69; PULSE 72; RESP 20; TEMP 98.2; O2SAT 95
[2024-09-18 05:00] VITALS: BP 115/60; PULSE 50; RESP 18; TEMP 98; O2SAT 95
[2024-09-18 05:58] LABS: Amphetamine Screen, Urine Neg (NEGATIVE); Barbiturate Scree,Urine Neg (NEGATIVE); Benzodiazephine Screen, Urine Neg (NEGATIVE); Cannabinoid Screen, Urine Neg (NEGATIVE); Cocaine Screen, Urine Neg (NEGATIVE); Opiate Scree,Urine Neg (NEGATIVE); Phencyclidine Screen, Urine Neg (NEGATIVE)
[2024-09-18] MEDS ORDERED: ASPirin 81 mg TAB PO ONE (06:45)
[2024-09-18 07:36] LABS: Basophils # (auto) 0.1 10 ^3/uL (0-0.2); Basophils % (auto) 1.5 % (0.0-2.0); Eosinophils # (auto) 0.3 10 ^3/uL (0-0.8); Eosinophils % (auto) 4.8 % (0.0-7.0); Hematocrit 37.5 % (41.0-53.0); Hemoglobin 12.6 g/dL (13.5-17.5); Lymphocytes # (auto) 1.1 10 ^3/uL (0.4-5.4); Lymphocytes % (auto) 18.7 % (10.0-50.0); Mean Corpuscular Hgb Conc. 33.7 g/dL (32.0-36.0); Mean Corpuscular Volume 86.3 fL (80.0-100.0); Monocytes # (auto) 0.6 10 ^3/uL (0-1.3); Monocytes % (auto) 9.5 % (0.0-12.0); Neutrophils # (auto) 3.9 10 ^3/uL (1.6-8.6); Neutrophils % (auto) 65.5 % (37.0-80.0); Platelet Count (auto) 208 10^3/uL (140-450); Red Blood Cells 4.34 10^6/uL (4.5-5.90); Red Cell Distribution Width 16.2 % (11.8-14.3); White Blood Cell 5.9 10^3/uL (4.4-10.8)
[2024-09-18 07:53] LABS: Alanine Aminotransferase 16 U/L (7-40); Alkaline Phosphatase 84 U/L (46-116); Anion Gap 7 (5-15); Aspartate Aminotransferase 15 U/L (13-40); BUN/Creatinine Ratio 13.1 (10.0-20.0); Blood Urea Nitrogen 14 mg/dL (9-23); Calcium 9.2 mg/dL (8.7-10.4); Carbon Dioxide 23 mmol/L (20-31); Chloride 109 mmol/L (98-107); Glucose 138 mg/dL (74-106); LDL Cholesterol 78 mg/dL (< 100); Potassium 3.8 mmol/L (3.5-5.1); Sodium 139 mmol/L (136-145); Triglycerides 106 mg/dL (< 150)
[2024-09-18 07:54] LABS: Bilirubin, Total 3.1 mg/dL (0.2-1.0); Cholesterol 125 mg/dL (< 200); HDL Cholesterol 30 mg/dL (40-59); Total Protein 6.4 g/dL (5.7-8.2)
[2024-09-18 07:57] LABS: Free T3 3.23 pg/mL (2.3-4.2); Free T4 (Free Thyroxine) 1.09 ng/dL (0.89-1.76)
[2024-09-18 08:00] VITALS: PULSE 71; RESP 20; O2SAT 92
[2024-09-18 09:00] VITALS: BP 113/65; PULSE 71; RESP 20; TEMP 98.1; O2SAT 92
[2024-09-18 09:38] VITALS: O2SAT 94
[2024-09-18] MEDS: EMPAGLIFLOZIN 10 MG TAB PO SCH (10:16)
[2024-09-18] MEDS: FUROSEMIDE 20 MG/2 ML VIAL IV SCH (10:17)
[2024-09-18] MEDS ORDERED: OSEL75CA5 PO (11:41)
[2024-09-18] MEDS ORDERED: EMPA1TAB PO (11:41)
[2024-09-18] MEDS ORDERED: DOXY-286 PO (11:41)
[2024-09-18] MEDS ORDERED: FURO1TAB33 PO (11:41)
[2024-09-18] MEDS ORDERED: CARV-214 OR (11:41)
--- NOTE | 2024-09-18 11:47 | DVHDSRES ---
Discharge Summary Date of Admission Resident Creating Document: NITA WOLFF Sep 16, 2024 at 21:07 Date of Discharge: Sep 18, 2024 Admitting Diagnosis Cough and shortness of breaths Labs/Diagnostic Data: Laboratory Results Test 09/18/24 07:00 09/18/24 06:11 09/17/24 19:53 09/17/24 18:15 White Blood Count 5.9 10^3/uL (4.4-10.8) Red Blood Count 4.34 10^6/uL (4.5-5.90) Hemoglobin 12.6 g/dL (13.5-17.5) Hematocrit 37.5 % (41.0-53.0) Mean Corpuscular Volume 86.3 fL (80.0-100.0) Mean Corpuscular Hemoglobin 29.0 pg (28.0-32.0) Mean Corpuscular Hemoglobin Concent 33.7 g/dL (32.0-36.0) Red Cell Distribution Width 16.2 % (11.8-14.3) Platelet Count 208 10^3/uL (140-450) Mean Platelet Volume 8.5 fL (6.9-10.8) Neutrophils (%) (Auto) 65.5 % (37.0-80.0) Lymphocytes (%) (Auto) 18.7 % (10.0-50.0) Monocytes (%) (Auto) 9.5 % (0.0-12.0) Eosinophils (%) (Auto) 4.8 % (0.0-7.0) Basophils (%) (Auto) 1.5 % (0.0-2.0) Neutrophils # (Auto) 3.9 10 ^3/uL (1.6-8.6) Lymphocytes # (Auto) 1.1 10 ^3/uL (0.4-5.4) Monocytes # (Auto) 0.6 10 ^3/uL (0-1.3) Eosinophils # (Auto) 0.3 10 ^3/uL (0-0.8) Basophils # (Auto) 0.1 10 ^3/uL (0-0.2) Nucleated Red Blood Cells 0.0 % Sodium Level 139 mmol/L (136-145) Potassium Level 3.8 mmol/L (3.5-5.1) Chloride Level 109 mmol/L (98-107) Carbon Dioxide Level 23 mmol/L (20-31) Anion Gap 7 (5-15) Blood Urea Nitrogen 14 mg/dL (9-23) Creatinine 1.07 mg/dL (0.700-1.30) Glomerular Filtration Rate Calc 75 mL/min (>90) BUN/Creatinine Ratio 13.1 (10.0-20.0) Serum Glucose 138 mg/dL (74-106) Calcium Level 9.2 mg/dL (8.7-10.4) Total Bilirubin 3.1 mg/dL (0.2-1.0) Aspartate Amino Transferase (AST) 15 U/L (13-40) Alanine Aminotransferase (ALT) 16 U/L (7-40) Alkaline Phosphatase 84 U/L (46-116) Total Protein 6.4 g/dL (5.7-8.2) Albumin 4.0 g/dL (3.2-4.8) Triglycerides Level 106 mg/dL (< 150) Cholesterol Level 125 mg/dL (< 200) LDL Cholesterol 78 mg/dL (< 100) HDL Cholesterol 30 mg/dL (40-59) Free Thyroxine (T4) Calculated 1.09 ng/dL (0.89-1.76) Free Triiodothyronine (T3) pg/mL 3.23 pg/mL (2.3-4.2) POC Glucose 155 mg/dl (70-106) Troponin I High Sensitivity 9 ng/L (</=54) Phosphorus Level 3.0 mg/dL (2.4-5.1) Magnesium Level 2.1 mg/dL (1.6-2.6) Test 09/17/24 16:55 09/17/24 11:12 09/17/24 08:00 09/16/24 17:30 Prothrombin Time 21.3 sec (9.3-11.8) Prothrombin Time INR 2.12 (0.9-1.15) Urine Color Yellow (Yellow) Urine Clarity Clear (Clear) Urine pH 6.0 (5.0-9.0) Urine Specific [place] 1.020 (1.001-1.035) Urine Protein Negative (Negative) Urine Ketones Negative (Negative) Urine Blood Negative /uL (Negative) Urine Nitrite Negative (Negative) Urine Bilirubin Negative (Negative) Urine Urobilinogen Normal mg/dL (Negative) Urine Leukocyte Esterase 1+ /uL (Negative) Urine RBC 1 /hpf (0 - 3) Urine WBC 3 /hpf (0 - 3) Urine Squamous Epithelial Cells Few /hpf (<5) Urine Bacteria None seen /hpf (None Seen) Urine Glucose Trace mg/dL (Normal) Urine Opiates Screen Neg (NEGATIVE) Urine Fentanyl Screen Neg (NEGATIVE) Urine Barbiturates Screen Neg (NEGATIVE) Urine Phencyclidine Screen Neg (NEGATIVE) Urine Amphetamines Screen Neg (NEGATIVE) Urine Benzodiazepines Screen Neg (NEGATIVE) Urine Cocaine Screen Neg (NEGATIVE) Urine Cannabinoids Screen Neg (NEGATIVE) Influenza Type A Antigen Negative (Negative) Influenza Type B Antigen Positive (Negative) SARS-CoV-2 Antigen (Rapid) Negative (NEGATIVE) D-Dimer, Quantitative 0.40 mg/L FEU (0.0-0.49) Hemoglobin A1c 6.1 % A1C (<5.7) B-Type Natriuretic Peptide 338.88 pg/mL (0-100) Vitamin B12 Level 318 pg/mL (211-911) Vitamin D 25-Hydroxy 32.8 ng/mL (30.0-100) Thyroid Stimulating Hormone (TSH) 5.92 uIU/mL (0.55-4.78) Other Laboratory Tests 09/18/24 07:00 Brief Hx & Hospital Course: Patient is 68 years old male with past medical history of congestive heart failure, hypertension, diabetes mellitus type 2, hyperlipidemia, DVT, pulmonary embolism, Hodgkin's lymphoma came with a complaint of short of breath and cough for 3 days. As per patient patient has been coughing for last 3 days making yellowish sputum. Patient also reported having short of breath for last 3 days. Per patient patient feels like his chest has been congested and he heard wheezing. Patient went to urgent care and urgent care recommended him to go to the ER. Denied fever, palpitation, dysuria, constipation, diarrhea, dizziness/vertigo/dysarthria. Initial lab workup revealed serum bilirubin 2.4, HGB A1c 6.1, BNP 338, TSH 5.98, COVID-19 negative, positive for influenza type B, chest x-ray-Hazy bibasilar opacities may reflect atelectasis or mild pneumonia.Echo 2D revealedModerately severely reduced left ventricular systolic function estimated ejection fraction of 35%. In a global fashion. There is a grade diastolic dysfunction. Fkur-pf-qqnjpfenhe reduced left ventricular systolic function. Moderately elevated right ventricular systolic pressure 50 mm of mercury. Moderately dilated left and right atria. Moderately dilated left and right atria. During hospitalization patient was found to have acute on chronic heart failure with reduced ejection fraction, LVEF 35%. Patient was seen by Cardiology, recommend she reviewed and appreciated. Patient was started on carvedilol 3.125 mg p.o. b.i.d., Jardiance 10 mg p.o. daily. . Patient was also on Lasix 20 mg daily. Patient got treated for suspected pneumonia with doxycycline 100 mg b.i.d. and for influenza type B Tamiflu then 75 mg p.o. b.i.d.. Patient's symptom clinically improve with conservative management. Patient verbalized feeling much better than before. Patient is being discharged home in hemodynamically stable condition. Patient is being discharged on carvedilol 3.125 mg p.o. b.i.d., Jardiance 10 mg p.o. daily. Patient was advised to follow up with the Cardiology for further management of GDMT. GDMT was not started because of lower trend of blood pressure. Patient was prescribed Lasix 20 mg daily, doxycycline 100 mg p.o. b.i.d. for 4 days, Tamiflu 75 mg p.o. b.i.d. for 4 days. Patient was advised to follow up with the primary care physician in 1 week and to follow up with the cath lab nurse in 1-2 weeks for further evaluation and care. Patient's med were sent to the pharmacy electronically. Patient was hemodynamically stable on discharge. PMH-congestive heart failure, hypertension, diabetes mellitus type 2, hyperlipidemia, DVT, pulmonary embolism, Hodgkin's lymphoma PSH- Appendectomy, umbilical hernia repair surgery 2 times, hand surgery Allergy- NKDA Personal History/ Social History- Lasix smoking/ alcoholism/drug abuse Patient was seen today at the bedside. Patient reports feeling better today Cardiovascular- deny palpitation Gastrointestinal- denies any rectal bleeding, nausea or vomiting Musculoskeletal-denies acute joint swelling or tenderness or redness Neurological- denies acute dysarthria, dysphagia, change in vision Psychiatry- denies depression or SI or HI Skin- denies acute rash or purpura General examination- awake, alert, oriented, conversant HEENT- PEERLA, no acute nasal discharge Cardiovascular- S1-S2 audible, rate and rhythm regular, no murmur Respiratory- bilateral lung crackles+ Gastrointestinal-nontender, bowel sound+. Nondistended Musculoskeletal-no acute joint swelling or tenderness or redness# Lower extremity- no leg edema Neurological- cranial nerves intact, no acute dysarthria or dysphagia Psychiatry- denies depression or SI or HI Skin- no rash or purpura Operations or Procedures [place] [id number] Ph: [phone] DIAGNOSTIC IMAGING Diagnostic Imaging Report : [id number] Signed PATIENT: ANTOLIN JULES ACCT: [id number] UNIT: [id number] : 1955 LOC: ER ROOM / BED: / AGE / SEX: 68 / M ADM STATUS: REG ER SERVICE 23 ORDERING PHYSICIAN: LANCE SALAMANCA MD PROCEDURE(s): CXR2 - CHEST TWO VIEWS ROUTINE REASON: sob ORDER NUMBER(s): [id number], ACCESSION NUMBER(s): [id number] CHEST RADIOGRAPH Indication:sob Technique: Frontal and lateral view of the chest was obtained Comparison: None FINDINGS: Lines and Tubes: None Lungs: Hazy bibasilar opacities may reflect atelectasis or mild pneumonia. Pleura: No effusion. No pneumothorax. Cardiomediastinal contours: Unremarkable Bones: Right shoulder arthroplasty is partially visualized. IMPRESSION: 1. Hazy bibasilar opacities may reflect atelectasis or mild pneumonia. ATED BY: LAUREANO LANGE MD DICTATED DATE/TIME: 09/16/241756 SIGNED BY: LAUREANO LANGE MD SIGNED DATE/TIME: 09/16/241756 CC: [address] [id number] Ph: [phone] DIAGNOSTIC IMAGING Diagnostic Imaging Report : [id number] Signed PATIENT: ANTOLIN JULES ACCT: [id number] UNIT: [id number] : 1955 LOC: CENTRAL ROOM / BED: 0216 / B AGE / SEX: 68 / M ADM STATUS: ADM IN SERVICE 0551 ORDERING PHYSICIAN: FARDOUS,GIOVANA RESIDENT PROCEDURE(s): ECIDC - ECHO 2D MODE CARDIAC DOP REASON: Shortness of breath ORDER NUMBER(s): [id number], ACCESSION NUMBER(s): [id number] APPROVED REPORT EXAM: Two-dimensional and M-mode echocardiogram with Doppler and color Doppler. Blood Pressure: 123/68 mmHg INDICATION Dyspnea RISK FACTORS Height: 5'10", Weight: 213 DIMENSIONS LVDd 6.1 (3.8-5.7cm) LA (2D) 4.6 (1.9-4.0cm) Aortic Root 3.4 (2.0- 3.7cm) LVDs 5.1 (2.5-4.0cm) LA (MM) (1.9-4.0cm) Aortic Cusp Exc 1.7 (1.5- 2.0cm) EF (%) 35.0 (55-70%) Rt. Atrium 3.4 (1.9-4.0cm) Asc. Aorta cm IVSd 0.9 (0.7-1.1cm) RV (D) 4.0 (1.8-2.4cm) PWd 1.0 (0.7-1.1cm) Mitral Valve Mitral Mitral Stenosis E wave 1.29m/s MV Mean GR. mmHg A wave 0.87m/s MV Peak GR. mmHg E/A ratio 1.5 2D MVA cm2 DECEL Time 219ms PRESS 1/2 Time ms Aortic Valve Aortic Valve Aortic Stenosis V1 0.81m/s AO Mean GR. 4mmHg V2 1.25m/s AO Peak GR. 6mmHg LVOT Diameter 2.3 (1.8-2.4cm) Doppler TARA 2.69cm2 Pulmonic Valve V2 0.96m/s Tricuspid Valve TR Velocity 3.28m/s RVSP 51mmHg Other Information Quality : Technically Limited Rhythm : Technically limited study due to body habitus. Conclusion Moderately severely reduced left ventricular systolic function estimated ejection fraction of 35%. In a global fashion. There is a grade diastolic dysfunction. Ebav-xp-strfjqswif reduced left ventricular systolic function. Moderately elevated right ventricular systolic pressure 50 mm of mercury. Moderately dilated left and right atria. There is severe torrential mitral valve regurgitation that is posteriorly directed. There is mild tricuspid valve regurgitation Aortic valve is mildly thickened and sclerotic. The pulmonary valve is grossly normal. No pericardial effusion. SIGNED BY: KONSTANTIN FARAH MD SIGNED DATE/TIME: 09/17/24 6128 CC: Condition at Discharge: Stable Final Diagnosis/Problems List Acute hypoxic respiratory failure likely due to HFrEF Acute on chronic HFrEF Suspected pneumonia Gram-positive versus Gram-negative #Influenza type B History of DVT, PE Hypertension Diabetes mellitus type 2 Hyperlipidemia Hyperbilirubinemia history of Hodgkin's lymphoma Elevated TSH Discharge Disposition: Home Discharge Instruct/Medications Diet: Consistent carbohydrate, Cardiac 2g Na,low cholest Activity: Light activity Follow Up/Referral: Follow up with your primary care physician in 1 week and also with the cath lab nurse in 1-2 weeks Discussed with your primary care physician about the elevated TSH Please talk to your cath lab nurse about medication Entresto and spironolactone Talk to your primary care physician or cath lab nurse before taking amlodipine Medications: Carvedilol 3.125 mg by mouth 2 times a day Jardiance 10 mg by mouth daily Lasix 20 mg by mouth in the morning Doxycycline 100 mg by mouth 2 times a day for 5 days Tamiflu 75 mg by mouth 2 times a day for 4 days Resume other home medications Discharge Statement: "Patient was advised to return to the ER or call 911 if any headaches, dizziness, shortness of breath, chest pain, abdominal pain, bleeding, fevers, or worsening of medical condition. Patient was counseled about treatment plan, medications, possible side effects, patientverbalized understanding. All questions were answered to the best of my ability. This discharge took greater then 30 minutes in planning, reviewing documentation, counseling the patient, and discussing with other team members." ASSESSMENT ASSESSMENT Assessment Acute hypoxic respiratory failure likely due to HFrEF Acute on chronic HFrEF Suspected pneumonia Gram-positive versus Gram-negative #Influenza type B History of DVT, PE Hypertension Diabetes mellitus type 2 Hyperlipidemia Hyperbilirubinemia history of Hodgkin's lymphoma Elevated TSH NITA WOLFF RESIDENT Sep 18, 2024 11:47
[2024-09-18 13:09] VITALS: BP 116/67; PULSE 74; RESP 20; TEMP 99; O2SAT 92
--- NOTE | 2024-09-18 20:53 | DVHPN2 ---
Progress Note - Dictate Date Seen: Sep 18, 2024 Medical Necessity Reason Pt with a Central, PICC or Fol: No Subjective Patient was seen and evaluated in follow up. Patient reports feeling better today. Echocardiogram revealed moderately severely reduced left ventricular systolic function estimated ejection fraction of 35%. In a global fashion. There is a grade diastolic dysfunction. Nejm-re-hcbjgiizgs reduced left ventricular systolic function. Moderately elevated right ventricular systolic pressure 50 mm of mercury. Moderately dilated left and right atria. HDL 30. vital signs Vital Sign Date Time Temp Pulse Resp B/P (MAP) Pulse Ox O2 Delivery O2 Flow Rate FiO2 09/18/24 13:09 99.0 74 20 116/67 (83) 92 99.0 09/18/24 09:38 Room Air 0.0 09/18/24 09:38 21 Total Intake and Output 09/17/24 09/17/24 09/18/24 15:00 23:00 07:00 Intake Total 250 ml 1000 ml 490 ml Balance 250 ml 1000 ml 490 ml objective GENERAL: Awake, alert, oriented. LUNGS: Diminished breath sounds. CARDIOVASCULAR: Heart sounds are good. ABDOMEN: Soft. laboratory and microbiology Laboratory Tests 09/18/24 07:00 Test 09/18/24 07:00 Range/Units Serum Glucose 138 H 74-106 mg/dL Problem List Acute hypoxic respiratory failure. Acute on chronic HPrEF, LVEF 35%. Influenza type B. History of DVT and PE. Hypertension. Diabetes mellitus type 2. Hyperlipidemia. Hyperbilirubinemia. Elevated TSH. History of Hodgkin's lymphoma. Assessment/Plan Continued all current supportive medical care. Morphine and [place] for pain management. Lipitor. Coreg. Oral antibiotics as ordered. Jardiance. Additional plan as per the hospital course. Plan discussed with: Patient YANY STUBBS MD Sep 18, 2024 20:53
== END 2024-09-18 13:49 | disposition home or self-care (01) | DRG 177 ==
LOC: ER 17:08 → OVERFLOW 21:07 → CENTRAL 23:41
PROVIDERS: ADMIT Internal Medicine Geriatric Medicine; ATTEND Emergency Medicine
DX: J15.69 Pneumonia due to other Gram-negative bacteria (principal); I50.23 Acute on chronic systolic (congestive) heart failure; J96.01 Acute respiratory failure with hypoxia; I11.0 Hypertensive heart disease with heart failure; J10.1 Influenza due to other identified influenza virus with other respiratory manifestations; E11.9 Type 2 diabetes mellitus without complications; J15.9 Unspecified bacterial pneumonia; Z20.822 Contact with and (suspected) exposure to COVID-19; E80.6 Other disorders of bilirubin metabolism; R94.6 Abnormal results of thyroid function studies; E78.5 Hyperlipidemia, unspecified; Z85.71 Personal history of Hodgkin lymphoma; Z90.49 Acquired absence of other specified parts of digestive tract; Z86.718 Personal history of other venous thrombosis and embolism; Z86.711 Personal history of pulmonary embolism; Z83.3 Family history of diabetes mellitus; Z79.01 Long term (current) use of anticoagulants; Z79.899 Other long term (current) drug therapy
CPT/HCPCS: 36415; 71046; 80048; 80053; 80061; 80307; 81001; 82306; 82607; 82962; 83036; 83735; 83880; 84100; 84439; 84443; 84481; 84484; 85025; 85379; 85610; 87426; 87804; 93005; 93306; 97163; 99291; G0378; J1815; J3490